=== PATIENT | female | born 2005 | race Hispanic/Latino ===

== ENCOUNTER 2024-01-05 09:44 | Emergency (ER) | payer SELFPAY | END 2024-01-05 10:18 | disposition home or self-care (01) | LOC: ERS 09:44 | DX: R51.9 Headache, unspecified (principal); Z30.46 Encounter for surveillance of implantable subdermal contraceptive; Z75.8 Other problems related to medical facilities and other health care; Z55.6 Problems related to health literacy | CPT/HCPCS: 99283 ==